=== PATIENT | male | born 1995 | race Caucasian/White ===

== ENCOUNTER 2019-10-06 15:37 | Emergency (ER) | payer OTHER ==
[~2019-10-06] VITALS: Ht 160 cm; Wt 68.0 kg
[2019-10-06 15:46] VITALS: BP 144/87
--- NOTE | 2019-10-06 15:51 | NUR ---
Mary rios in [facility] - 10/06/19 at 1553 by MMTHEM Patient ambulated to bed chair Jose LOWE evaluating patient at bedside.
--- NOTE | 2019-10-06 15:56 | NUR ---
Patient ambulated to bed chair C. RN evaluating patient at bedside.
[2019-10-06] MEDS ORDERED: ONDANSETRON 4 MG ODT PO ONE (16:00)
--- NOTE | 2019-10-06 16:02 | NUR ---
C/O N/V/D, ABDOMINAL PAIN X TODAY. PATIENT & HIS ATE PORK YESTERDAY. HAS SAME S/S.MED HX: DENIES.ABD SOFT, NO TENDERNESS. PATIENT STATES PAIN OF 10/10 AT THIS TIME; VSS; PATIENT POSITIONED FOR COMFORT; HOB ELEVATED; BEDRAILS UP X1; BED DOWN. ER MD MADE AWARE OF PT STATUS.
[2019-10-06 17:23] VITALS: BP 122/72
--- NOTE | 2019-10-06 17:23 | NUR ---
Patient discharged with v/s stable. Written and verbal after care instructions given and explained. Patient alert, oriented and verbalized understanding of instructions. Ambulatory with steady gait. All questions addressed prior to discharge. ID band removed. Patient advised to follow up with PMD. Rx of zofran odt, bentyl, imodium given. Patient educated on indication of medication including possible reaction and side effects. Opportunity to ask questions provided and answered.
== END 2019-10-06 17:23 | disposition home or self-care (01) ==
LOC: MED 15:37
DX: R11.2 Nausea with vomiting, unspecified (principal); R10.9 Unspecified abdominal pain; R03.0 Elevated blood-pressure reading, without diagnosis of hypertension
CPT/HCPCS: 81002; 99283; Q0162